=== PATIENT | male | born 2000 | race Caucasian/White ===

== ENCOUNTER 2025-03-29 10:44 | Emergency (ER) | payer OTHER, SELFPAY ==
[2025-03-29 10:55] VITALS: BP 134/95
--- NOTE | 2025-03-29 11:51 | ED.GENMED ---
History of Present Illness
General
Chief Complaint: Musculo-Skeletal Complaint
Source: patient
Time Seen by Provider: 03/29/25 11:30
History of Present Illness
History of Present Illness:
23-year-old male presents emergency room complaining of right knee pain. Patient suffered a patellar dislocation about 3 days ago. He has had several recurrence. Given the frequency dad brought the patient for imaging and further evaluation. No
other complaints. He is able to weight-bear. Patient has a history of CLOVES. He is not taking any prescription medications at this time.
Phy Exam
Physical Exam
Physical Exam:
General: Awake, Alert, Oriented X3. No acute distress.
Vitals: unremarkable
Head: Atraumatic
Eyes: Pupils equal, EOMI
Throat: Airway intact, no exudates
Neck: Trachea midline
Neuro: No focal weakness
Skin: Warm, dry, no rash
Extremities: pulses equal b/l, no edema. Bilateral extremities somewhat shorter than expected with very large girth. He has mild tenderness palpation about the right knee without any point tenderness. Patella appears to be in appropriate
anatomical location. Patient is able to raise his leg indicating the extensor mechanism is intact.
Course
Orders/Labs/Results
Orders:
Orders
03/29/25 11:01
Knee, Right 4 or More Views [CR Knee- Right 4 Or More View*] Urgent
Comment:
Reason For Exam: pain
03/29/25 11:54
Knee Immobilizer Right-Treatme ONCE
Vital Signs
Initial and Last Documented VS:
Initial Vital Signs
Pulse Resp BP Pulse Ox
123 18 134/95 98
03/29/25 10:55 03/29/25 10:55 03/29/25 10:55 03/29/25 10:55
Last Documented Vital Signs
Pulse Resp BP Pulse Ox
123 18 134/95 98
03/29/25 10:55 03/29/25 10:55 03/29/25 10:55 03/29/25 11:54
MDM/Problems Addressed
Differential Diagnosis Includes:
Patellar dislocation, patellar, muscle
MDM/Problems Addressed:
Patient presents with knee pain after repetitive patellar subluxation. Patella is in good anatomical position at time of my evaluation. There is mild diffuse tenderness without specific point tender knee. X-ray shows no acute abnormality. Will
put in a knee immobilizer. Have her follow with orthopedics.
*Radiology
Radiology exam reviewed: preliminary read by ED provider (Osteopenia, no acute fracture or dislocation noted to my review of the patient's knee x-ray)
*Pulse Oximetry
SaO2: 98
Oxygen Mode of Delivery: Room air
Patient hypoxic: no
*Critical Care Note
Total Time (30-74mins, 75-104mins- exclusive of procedures): Not Applicable
ED Attending Note
-
Portions of this chart may have been created with voice recognition software.� Occasional wrong word or��sound alike� substitutions may have occurred due to the inherent limitations of voice recognition software.
Discharge Plan
Departure
Patient Disposition: Home (Routine Discharge)
Date of Disposition: 03/29/25
Time of Disposition: 11:55
Patient with high blood pressure during this ER visit?: Yes
Condition: Good
Discharge Problem:
Dislocation of patella, right, closed
Instructions: Knee Immobilizer (DC), Dislocated Kneecap (DC)
Referrals:
Pavan Jansen MD [Active, Orthopedics]
Interventions
Interventions:
*Risk Screen - Suicide Last Done: 03/29/25 10:55
*General Assessment Last Done: 03/29/25 10:55
*Neglect/Abuse Screening Last Done: 03/29/25 12:29
*ED- Fall Risk Assessment Last Done: 03/29/25 10:55
*ED COVID-19 Vaccine History Last Done: 03/29/25 10:55
*Nursing Disposition Last Done: 03/29/25 12:29
ED-Musculoskeletal Assessment Last Done: 03/29/25 12:00
Discharge Date and Time
Discharge Date/Time: 03/29/25 12:30
Print Language: [id number]
== END 2025-03-29 12:30 | disposition home or self-care (01) ==
LOC: EMR 10:44
PROVIDERS: EMERGENCY PHYSICIAN Emergency Medicine
DX: S83.004A Unspecified dislocation of right patella, initial encounter (principal); X58.XXXA Exposure to other specified factors, initial encounter
CPT/HCPCS: 29505; 99283; 73564